=== PATIENT | male | born 2000 | race Caucasian/White ===

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

== ENCOUNTER 2019-09-16 12:41 | Emergency (ER) | payer MEDICAID, OTHER ==
[~2019-09-16] VITALS: Ht 172.7 cm; Wt 68.0 kg
[2019-09-16 15:06] VITALS: BP 138/90
== END 2019-09-16 14:53 | disposition home or self-care (01) ==
LOC: ER 12:41
DX: E10.9 Type 1 diabetes mellitus without complications (principal); Z76.0 Encounter for issue of repeat prescription

== ENCOUNTER 2020-01-02 03:47 | Emergency (ER) | payer OTHER, MEDICAID ==
[~2020-01-02] VITALS: Ht 172.7 cm; Wt 68.0 kg
[2020-01-02] MEDS ORDERED: LORazepam 0.5 MG TAB PO ONE (04:30)
[2020-01-02 04:43] VITALS: BP 137/82
[2020-01-02 05:49] LABS: Urine Bacteria FEW /hpf (None Seen); Urine Blood Negative /uL (Negative); Urine Specific Gravity 1.037 (1.001-1.035); Urine WBC <1 /hpf (0 - 3)
[2020-01-02 06:05] LABS: Alcohol, Urine < 3.0 mg/dL (0-10); Amphetamine Screen, Urine POSITIVE (NEGATIVE); Barbiturate Scree,Urine NEGATIVE (NEGATIVE); Benzodiazephine Screen, Urine NEGATIVE (NEGATIVE); Cannabinoid Screen, Urine NEGATIVE (NEGATIVE); Cocaine Screen, Urine NEGATIVE (NEGATIVE); Opiate Scree,Urine NEGATIVE (NEGATIVE); Phencyclidine Screen, Urine NEGATIVE (NEGATIVE)
== END 2020-01-02 09:34 | disposition left against medical advice (07) ==
LOC: ER 03:49
DX: R00.2 Palpitations (principal); R42 Dizziness and giddiness; Z53.21 Procedure and treatment not carried out due to patient leaving prior to being seen by health care provider
CPT/HCPCS: 80307; 81001; 82962; 93005

== ENCOUNTER 2020-07-05 14:01 | Emergency (ER) | payer OTHER, MEDICAID ==
[~2020-07-05] VITALS: Ht 172.7 cm; Wt 63.5 kg
[2020-07-05] MEDS ORDERED: SODIUM CHLORIDE 0.9% 1,000 ML IVB ONE (14:30)
[2020-07-05 15:20] LABS: Basophils # (auto) 0.1 10 ^3/uL (0-0.2); Eosinophils # (auto) 0 10 ^3/uL (0-0.8); Eosinophils % (auto) 0.1 % (0.0-7.0)
[2020-07-05 15:22] LABS: Basophils % (auto) 0.6 % (0.0-2.0); Hematocrit 49.8 % (41.0-53.0); Hemoglobin 15.1 g/dL (13.5-17.5); Lymphocytes # (auto) 2.8 10 ^3/uL (0.4-5.4); Mean Corpuscular Hemoglobin 29.1 pg (28.0-32.0); Mean Corpuscular Hgb Conc. 30.4 g/dL (32.0-36.0); Mean Corpuscular Volume 95.7 fL (80.0-100.0); Monocytes # (auto) 1.9 10 ^3/uL (0-1.3); Monocytes % (auto) 9.1 % (0.0-12.0); Neutrophils # (auto) 16.5 10 ^3/uL (1.6-8.6); Neutrophils % (auto) 77.2 % (37.0-80.0); Nucleated Red Blood Cells % 0.1 %; Platelet Count (auto) 488 10^3/uL (140-450); Red Blood Cells 5.21 10^6/uL (4.5-5.90); Red Cell Distribution Width 14.2 % (11.8-14.3); White Blood Cell 21.3 10^3/uL (4.4-10.8)
[2020-07-05] MEDS ORDERED: ONDANSETRON HCL 4 MG/2 ML VIAL IV ONE (15:30)
[2020-07-05] MEDS ORDERED: ONDANSETRON HCL 4 MG/2 ML VIAL ONE (15:36)
[2020-07-05 15:58] LABS: Potassium 4.6 mmol/L (3.5-5.1)
[2020-07-05 16:07] LABS: Urine Bacteria NONE SEEN /hpf (None Seen); Urine Blood Negative /uL (Negative); Urine WBC 1 /hpf (0 - 3)
[2020-07-05 16:13] LABS: Albumin 3.8 g/dL (3.4-5.0); BUN/Creatinine Ratio 14.3; Bilirubin, Total 0.4 mg/dL (0.2-1.0); Calcium 9.1 mg/dL (8.5-10.1); Magnesium 2.9 mg/dL (1.6-2.6)
[2020-07-05 16:18] LABS: Alcohol, Urine < 3.0 mg/dL (0-10); Amphetamine Screen, Urine NEGATIVE (NEGATIVE); Barbiturate Scree,Urine NEGATIVE (NEGATIVE); Benzodiazephine Screen, Urine NEGATIVE (NEGATIVE); Cannabinoid Screen, Urine NEGATIVE (NEGATIVE); Cocaine Screen, Urine NEGATIVE (NEGATIVE); Opiate Scree,Urine POSITIVE (NEGATIVE); Phencyclidine Screen, Urine NEGATIVE (NEGATIVE)
[2020-07-05] MEDS ORDERED: ACTIVATED CHARCOAL 50 GM/240 ML SOL PO ONE (16:45)
[2020-07-05] MEDS ORDERED: SODIUM BICARBONATE 8.4 % INJ 50ML VIAL IV ONE ×2 (16:45)
[2020-07-05] MEDS ORDERED: NALOXONE HCL 1MG/ML 2ML SYRINGE IV ONE (16:45)
[2020-07-05] MEDS ORDERED: InsuLIN R (HUMAN) 100 UNITS in SODIUM CHL 0.9% 99 ML IV SCH (16:45)
[2020-07-05] MEDS ORDERED: SODIUM CHLORIDE 0.9% 1,000 ML IV SCH ×3 (16:45→22:45)
[2020-07-05] MEDS ORDERED: DEXTROSE (50%) 50ML SYRG IV PRN (16:45)
[2020-07-05] MEDS ORDERED: ALUM & MAG HYDROX-SIMETH LIQ(MAALOX) 30 ML PO PRN (17:30)
[2020-07-05] MEDS ORDERED: NITROGLYCERIN 0.4 MG SL TAB SL PRN ×2 (17:30)
[2020-07-05] MEDS ORDERED: ACETAMINOPHEN 325 MG TAB PO PRN (17:30)
[2020-07-05] MEDS ORDERED: LORazepam 0.5 MG TAB PO PRN (17:30)
[2020-07-05] MEDS ORDERED: HYDROcodone-ACET 5/325MG TAB PO PRN (17:30)
[2020-07-05] MEDS ORDERED: LACTATED RINGER'S 2,000 ML IV ONE (17:30)
[2020-07-05] MEDS ORDERED: VANCOMYCIN PER PHARMACY 0 MG IV SCH (17:30)
[2020-07-05] MEDS ORDERED: ONDANSETRON HCL 4 MG/2 ML VIAL IV PRN (17:30)
[2020-07-05] MEDS ORDERED: DOCUSATE SOD 100 MG CAP PO PRN (17:30)
[2020-07-05] MEDS ORDERED: MORPHINE SULF INJ 2 MG/ML SYRINGE 1ML IV PRN ×3 (17:30)
[2020-07-05] MEDS ORDERED: MEROPENEM 1GM IVPB 100 ML IV ONE (17:45)
[2020-07-05] MEDS ORDERED: HALOPERIDOL LACTATE 5 MG/ML INJ VIAL IM ONE (18:00)
[2020-07-05] MEDS ORDERED: LORazepam 2MG/ML-1ML VIAL IV PRN (18:00)
[2020-07-05] MEDS ORDERED: LORazepam 2MG/ML-1ML VIAL IM ONE (18:00)
[2020-07-05] MEDS ORDERED: VANCOMYCIN 1GM/250ML 250 ML IV SCH (18:00)
[2020-07-05] MEDS: D5W/ SOD CHL 0.9%/KCL 20MEQ 1,000 ML IV SCH (18:00)
[2020-07-05] MEDS ORDERED: HALOPERIDOL LACTATE 5 MG/ML INJ VIAL IM PRN (18:00)
[2020-07-05] MEDS: ACCU-CHEK COMFORT CURVE STRIP VI SCH ×4 (18:05→22:57)
[2020-07-05] MEDS ORDERED: LORazepam 2MG/ML-1ML VIAL ONE (18:09)
[2020-07-05] MEDS ORDERED: HALOPERIDOL LACTATE 5 MG/ML INJ VIAL ONE (18:09)
[2020-07-05] MEDS: D5W/SOD CHLO 0.9% 1,000 ML IV SCH (18:55)
[2020-07-05 22:12] LABS: Anion Gap 19 (5-15); Blood Urea Nitrogen 14 mg/dL (7-18); Calcium 8.2 mg/dL (8.5-10.1); Carbon Dioxide 13 mmol/L (21-32); Chloride 108 mmol/L (98-107); Glucose 349 mg/dL (74-106); Potassium 3.6 mmol/L (3.5-5.1); Sodium 140 mmol/L (136-145)
[2020-07-05 22:14] LABS: Lactic Acid w/Reflex 6.6 mmol/L (0.4-2.0)
[2020-07-05 22:16] LABS: BUN/Creatinine Ratio 11.7; GFR African American 100 mL/min; GFR Non-African American 83 mL/min
[2020-07-06] MEDS: FAMOTIDINE (10MG/ML) 2ML VL IV SCH ×2 (00:12→09:55)
[2020-07-06] MEDS: VANCOMYCIN 1GM/250ML 250 ML IV SCH ×2 (00:18→09:47)
[2020-07-06] MEDS: ACCU-CHEK COMFORT CURVE STRIP VI SCH ×7 (00:21→09:47)
[2020-07-06] MEDS: D5W/SOD CHLO 0.9% 1,000 ML IV SCH (01:12)
[2020-07-06] MEDS: D5W/ SOD CHL 0.9%/KCL 20MEQ 1,000 ML IV SCH (04:00)
[2020-07-06] MEDS ORDERED: MEROPENEM 1GM IVPB 100 ML IV SCH (05:00)
[2020-07-06 06:26] LABS: Lactic Acid w/Reflex 6.6 mmol/L (0.4-2.0)
[2020-07-06 06:27] LABS: Eosinophils # (auto) 0 10 ^3/uL (0-0.8); Hemoglobin 13.7 g/dL (13.5-17.5); Lymphocytes # (auto) 2.1 10 ^3/uL (0.4-5.4)
[2020-07-06 06:29] LABS: Basophils # (auto) 0.2 10 ^3/uL (0-0.2); Basophils % (auto) 0.9 % (0.0-2.0); Hematocrit 40.8 % (41.0-53.0); Lymphocytes % (auto) 9.4 % (10.0-50.0); Mean Corpuscular Hemoglobin 29.4 pg (28.0-32.0); Mean Corpuscular Hgb Conc. 33.5 g/dL (32.0-36.0); Mean Corpuscular Volume 87.6 fL (80.0-100.0); Monocytes # (auto) 1.7 10 ^3/uL (0-1.3); Monocytes % (auto) 7.4 % (0.0-12.0); Neutrophils # (auto) 18.7 10 ^3/uL (1.6-8.6); Neutrophils % (auto) 82.3 % (37.0-80.0); Platelet Count (auto) 482 10^3/uL (140-450); Red Blood Cells 4.66 10^6/uL (4.5-5.90); Red Cell Distribution Width 12.7 % (11.8-14.3); White Blood Cell 22.7 10^3/uL (4.4-10.8)
[2020-07-06 06:48] LABS: BUN/Creatinine Ratio 9.8; Calcium 8.5 mg/dL (8.5-10.1)
[2020-07-06] MEDS ORDERED: SODIUM CHLORIDE 0.9% 1,000 ML IV SCH (07:00)
[2020-07-06] MEDS ORDERED: SODIUM CHLORIDE 0.9% 3,000 ML IV ONE (07:00)
[2020-07-06] MEDS ORDERED: D5W/ SOD CHL 0.9%/KCL 20MEQ 1,000 ML IV SCH (07:30)
[2020-07-06 08:42] VITALS: BP 157/100
[2020-07-06] MEDS ORDERED: ENOXAPARIN SOD 40 MG/0.4 ML SYRINGE SC SCH (10:00)
[2020-07-06 10:24] LABS: Calcium 7.8 mg/dL (8.5-10.1); Potassium 3.4 mmol/L (3.5-5.1)
== END 2020-07-06 10:16 | disposition left against medical advice (07) ==
LOC: ER 14:01 → UNDOADMIN 17:37 → TELE 17:37
DX: A41.9 Sepsis, unspecified organism (principal); E10.10 Type 1 diabetes mellitus with ketoacidosis without coma; F41.8 Other specified anxiety disorders; F17.210 Nicotine dependence, cigarettes, uncomplicated; F12.10 Cannabis abuse, uncomplicated; F14.10 Cocaine abuse, uncomplicated; G92 Toxic encephalopathy; G93.41 Metabolic encephalopathy; D72.829 Elevated white blood cell count, unspecified; F31.9 Bipolar disorder, unspecified; R07.9 Chest pain, unspecified
CPT/HCPCS: 36415; 36600; 71045; 80048; 80053; 80307; 81001; 82553; 82805; 82962; 83036; 83605; 83690; 83735; 84484; 85025; 85379; 87040; 87086; 87426; 96361; 96365; 96366; 96368; 96372; 96375; 99291; J1630; J1650; J1815; J2060; J2185; J2310; J2405; J3370; J3490; J7030; 96374; G0378

== ENCOUNTER 2020-11-14 19:10 | Inpatient (IN) | payer OTHER, MEDICAID ==
[~2020-11-14] VITALS: Ht 172.7 cm; Wt 56.0 kg
[2020-11-14] MEDS ORDERED: SODIUM CHLORIDE 0.9% 1,000 ML IV ONE (19:30)
[2020-11-14 20:06] LABS: Hemoglobin 11.8 g/dL (13.5-17.5)
[2020-11-14 20:08] LABS: Hematocrit 43.6 % (41.0-53.0); Mean Corpuscular Hemoglobin 29.4 pg (28.0-32.0); Red Cell Distribution Width 14.9 % (11.8-14.3)
[2020-11-14] MEDS ORDERED: InsuLIN REG 1unit/0.01ml Soln (100units/ml) IV ONE ×2 (20:15→23:30)
[2020-11-14] MEDS ORDERED: SODIUM BICARB 50ML SYR 50 ML in SODIUM CHLORIDE 0.9% 1,000 ML IV ONE (20:15)
[2020-11-14 20:23] LABS: INR 1.08 (0.9-1.15)
[2020-11-14 20:25] LABS: White Blood Cell 42.5 10^3/uL (4.4-10.8)
[2020-11-14 20:26] LABS: Lactic Acid w/Reflex 5.9 mmol/L (0.4-2.0)
[2020-11-14 20:31] LABS: Albumin 3.6 g/dL (3.4-5.0); BUN/Creatinine Ratio 19.4; Bilirubin, Total 0.6 mg/dL (0.2-1.0); Calcium 8.1 mg/dL (8.5-10.1); Total Protein 7.2 g/dL (6.4-8.2)
[2020-11-14 20:37] LABS: Basophils % (manual) 0 (0.0-2.0); Blast Cells 0; Eosinophils % (manual) 0 (0-7); Promyelocytes % 0; Reactive Lymphocytes 0
[2020-11-14 20:52] LABS: Potassium 5.8 mmol/L (3.5-5.1)
[2020-11-14] MEDS: D5W/SOD CHL 0.45%/KCL 20MEQ 1,000 ML IV SCH (21:00)
[2020-11-14] MEDS ORDERED: INSULIN LANTUS (GLARGINE) 1 /0.01ml (100units/ml) SC ONE (21:00)
[2020-11-14] MEDS: ACCU-CHEK COMFORT CURVE STRIP VI SCH ×2 (21:00→22:40)
[2020-11-14] MEDS ORDERED: InsuLIN R (HUMAN) 100 UNITS in SODIUM CHL 0.9% 99 ML IV SCH (21:00)
[2020-11-14] MEDS: SODIUM CHLORIDE 0.9% 1,000 ML IV SCH ×2 (21:00→23:00)
[2020-11-14] MEDS ORDERED: DEXTROSE (50%) 50ML SYRG IV PRN (21:00)
[2020-11-14 21:10] LABS: Band Neutrophils % (manual) 8; Lymphocytes % (manual) 11 (10.0-50.0); Metamyelocytes % 1; Monocytes % (manual) 9 (0-12); Myelocytes % 1
[2020-11-14] MEDS ORDERED: SODIUM BICARBONATE 8.4 % INJ 50ML VIAL IV ONE ×2 (21:30→21:31)
[2020-11-14] MEDS ORDERED: InsuLIN REG 1unit/0.01ml Soln (100units/ml) ONE (21:37)
[2020-11-14] MEDS ORDERED: cefTRIAXone 1GM/50ML D5W 50 ML IV ONE (22:00)
[2020-11-14] MEDS ORDERED: NITROGLYCERIN 0.4 MG SL TAB SL PRN (22:45)
[2020-11-14] MEDS ORDERED: VANCOMYCIN PER PHARMACY 0 MG IV SCH (22:45)
[2020-11-14] MEDS ORDERED: ACETAMINOPHEN 325 MG TAB PO PRN (22:45)
[2020-11-14] MEDS ORDERED: MORPHINE SULFATE INJECTION 2 MG/ML SYRG IV PRN (22:45)
[2020-11-14] MEDS ORDERED: HYDROcodone-ACET 5/325MG TAB PO PRN (22:45)
[2020-11-14] MEDS ORDERED: hydrALAZINE HCL 20 MG/ML VL IV PRN (22:45)
[2020-11-14] MEDS ORDERED: ONDANSETRON HCL 4 MG/2 ML VIAL IV PRN (22:45)
[2020-11-14] MEDS ORDERED: VANCOMYCIN 1GM/250ML 250 ML IV ONE (23:00)
[2020-11-14 23:03] LABS: Calcium 7.3 mg/dL (8.5-10.1)
[2020-11-14 23:12] LABS: BUN/Creatinine Ratio 23.7
[2020-11-14] MEDS ORDERED: LORazepam 2MG/ML-1ML VIAL IV ONE (23:45)
[2020-11-15] MEDS: ACCU-CHEK COMFORT CURVE STRIP VI SCH ×17 (00:20→20:41)
[2020-11-15] MEDS ORDERED: SODIUM CHLORIDE 0.9% 1,000 ML IV SCH (01:00)
[2020-11-15 01:28] LABS: Lactic Acid w/Reflex 4.9 mmol/L (0.4-2.0)
[2020-11-15] MEDS ORDERED: LORazepam 2MG/ML-1ML VIAL IV PRN (01:30)
[2020-11-15] MEDS: D5W/SOD CHL 0.45%/KCL 20MEQ 1,000 ML IV SCH ×3 (02:43→14:09)
[2020-11-15] MEDS: SODIUM CHLORIDE 0.9% 1,000 ML IV SCH ×3 (03:00→14:55)
[2020-11-15 05:26] LABS: Hematocrit 33.2 % (41.0-53.0); Mean Corpuscular Hemoglobin 29.2 pg (28.0-32.0); Mean Corpuscular Hgb Conc. 33.6 g/dL (32.0-36.0); Red Cell Distribution Width 13.3 % (11.8-14.3)
[2020-11-15 05:28] LABS: Hemoglobin 11.2 g/dL (13.5-17.5); Mean Corpuscular Volume 86.8 fL (80.0-100.0); Red Blood Cells 3.83 10^6/uL (4.5-5.90); White Blood Cell 26.1 10^3/uL (4.4-10.8)
[2020-11-15 05:36] LABS: Basophils % (manual) 0 (0.0-2.0); Blast Cells 0; Eosinophils % (manual) 0 (0-7); Metamyelocytes % 0; Myelocytes % 0; Promyelocytes % 0; Reactive Lymphocytes 0
[2020-11-15 05:42] LABS: Albumin 3.1 g/dL (3.4-5.0); Calcium 8.3 mg/dL (8.5-10.1); Magnesium 2.1 mg/dL (1.6-2.6); Phosphorus 2.2 mg/dL (2.5-4.90)
[2020-11-15 05:46] LABS: BUN/Creatinine Ratio 26.5; Bilirubin, Total 0.4 mg/dL (0.2-1.0); Total Protein 6.2 g/dL (6.4-8.2)
[2020-11-15 05:51] LABS: Urine Bacteria NONE SEEN /hpf (None Seen); Urine Blood Negative /uL (Negative); Urine Specific Gravity 1.023 (1.001-1.035); Urine WBC 51 /hpf (0 - 3); Urine WBC Clumps PRESENT /hpf (None Seen)
[2020-11-15 06:52] LABS: Band Neutrophils % (manual) 27; Lymphocytes % (manual) 5 (10.0-50.0); Monocytes % (manual) 11 (0-12)
[2020-11-15] MEDS: cefTRIAXone 1GM/50ML D5W 50 ML IV SCH (09:00)
[2020-11-15 09:59] LABS: BUN/Creatinine Ratio 23.2; Calcium 7.7 mg/dL (8.5-10.1); Potassium 3.7 mmol/L (3.5-5.1)
[2020-11-15] MEDS: MULTIPLE VITAMIN TAB PO SCH (10:00)
[2020-11-15] MEDS: FAMOTIDINE (10MG/ML) 2ML VL IV SCH ×2 (10:00→21:30)
[2020-11-15] MEDS: HEPARIN SODIUM (PORCINE) 5000 UNITS/ML 1ML VIAL SC SCH ×2 (10:00→21:31)
[2020-11-15] MEDS: ZINC SULFATE 220mg CAP or TAB PO SCH (10:00)
[2020-11-15] MEDS: ASCORBIC ACID 500 MG TAB PO SCH ×2 (10:00→21:30)
[2020-11-15] MEDS: VANCOMYCIN 1GM/250ML 250 ML IV SCH ×2 (10:00→20:00)
[2020-11-15] MEDS ORDERED: DEXTROSE (50%) 50ML SYRG IV PRN (15:00)
[2020-11-15] MEDS: InsuLIN REG 1unit/0.01ml Soln (100units/ml) SC SCH ×2 (16:00→20:00)
[2020-11-15 21:44] LABS: Alcohol, Urine < 3.0 mg/dL (0-10); Amphetamine Screen, Urine POSITIVE (NEGATIVE); Barbiturate Scree,Urine NEGATIVE (NEGATIVE); Benzodiazephine Screen, Urine NEGATIVE (NEGATIVE); Cannabinoid Screen, Urine NEGATIVE (NEGATIVE); Cocaine Screen, Urine NEGATIVE (NEGATIVE); Opiate Scree,Urine NEGATIVE (NEGATIVE); Phencyclidine Screen, Urine NEGATIVE (NEGATIVE)
[2020-11-15] MEDS ORDERED: INSULIN LANTUS (GLARGINE) 1 /0.01ml (100units/ml) SC SCH (22:00)
[2020-11-15 22:37] LABS: Albumin 2.5 g/dL (3.4-5.0); BUN/Creatinine Ratio 26.4; Calcium 7.9 mg/dL (8.5-10.1); Potassium 3.6 mmol/L (3.5-5.1)
[2020-11-15 22:39] LABS: Bilirubin, Total 0.4 mg/dL (0.2-1.0); Total Protein 5.5 g/dL (6.4-8.2)
[2020-11-16] VITALS: BP 131/63
[2020-11-16] MEDS: InsuLIN REG 1unit/0.01ml Soln (100units/ml) SC SCH ×3 (00:12→08:00)
[2020-11-16] MEDS: ACCU-CHEK COMFORT CURVE STRIP VI SCH ×3 (00:13→08:00)
[2020-11-16 05:00] VITALS: BP 129/84
[2020-11-16] MEDS: SODIUM CHLORIDE 0.9% 1,000 ML IV SCH (05:09)
[2020-11-16] MEDS: VANCOMYCIN 1GM/250ML 250 ML IV SCH (06:00)
[2020-11-16 09:00] VITALS: BP 124/83
[2020-11-16] MEDS: cefTRIAXone 1GM/50ML D5W 50 ML IV SCH (09:00)
[2020-11-16] MEDS: ASCORBIC ACID 500 MG TAB PO SCH (09:54)
[2020-11-16] MEDS: ZINC SULFATE 220mg CAP or TAB PO SCH (09:54)
[2020-11-16] MEDS: MULTIPLE VITAMIN TAB PO SCH (09:54)
[2020-11-16] MEDS: FAMOTIDINE (10MG/ML) 2ML VL IV SCH (09:54)
[2020-11-16] MEDS: HEPARIN SODIUM (PORCINE) 5000 UNITS/ML 1ML VIAL SC SCH (09:55)
== END 2020-11-16 12:10 | disposition left against medical advice (07) | DRG 871 ==
LOC: EDUNIT# 19:10 → EDBD 19:10 → ER 19:10 → TELE 22:42 → TELE-CENTR 11-15 22:53
PROVIDERS: ADMIT Nurse Practitioner Family; ATTEND Internal Medicine
DX: A41.9 Sepsis, unspecified organism (principal); G92 Toxic encephalopathy; N17.0 Acute kidney failure with tubular necrosis; E10.10 Type 1 diabetes mellitus with ketoacidosis without coma; E87.1 Hypo-osmolality and hyponatremia; R65.20 Severe sepsis without septic shock; E87.8 Other disorders of electrolyte and fluid balance, not elsewhere classified; F11.10 Opioid abuse, uncomplicated; D47.3 Essential (hemorrhagic) thrombocythemia; D63.1 Anemia in chronic kidney disease; E10.22 Type 1 diabetes mellitus with diabetic chronic kidney disease; E83.39 Other disorders of phosphorus metabolism; E86.0 Dehydration; Z53.29 Procedure and treatment not carried out because of patient's decision for other reasons; E87.5 Hyperkalemia; F12.10 Cannabis abuse, uncomplicated; N18.9 Chronic kidney disease, unspecified; F17.210 Nicotine dependence, cigarettes, uncomplicated; F41.9 Anxiety disorder, unspecified; Z20.822 Contact with and (suspected) exposure to COVID-19; F32.9 Major depressive disorder, single episode, unspecified; Z79.4 Long term (current) use of insulin; Z80.3 Family history of malignant neoplasm of breast; Z82.49 Family history of ischemic heart disease and other diseases of the circulatory system; Z83.3 Family history of diabetes mellitus; Z91.14 Patient's other noncompliance with medication regimen
CPT/HCPCS: 36415; 36600; 71045; 80048; 80053; 80307; 81001; 82010; 82805; 82962; 83036; 83605; 83735; 83930; 84100; 85007; 85027; 85610; 87040; 87081; 87086; 87426; 96361; 96365; 96366; 96367; 96372; 96375; 96376; 99291; G0378; J0696; J1815; J2405; J3490

== ENCOUNTER 2020-11-24 03:12 | Inpatient (IN) | payer OTHER, MEDICAID ==
[~2020-11-24] VITALS: Ht 170.2 cm; Wt 49.9 kg
[2020-11-24] MEDS ORDERED: SODIUM CHLORIDE 0.9% 2,000 ML IV ONE (04:00)
[2020-11-24] MEDS ORDERED: InsuLIN REG 1unit/0.01ml Soln (100units/ml) IV ONE ×3 (04:00→07:30)
[2020-11-24] MEDS ORDERED: INSULIN LANTUS (GLARGINE) 1 /0.01ml (100units/ml) SC ONE (04:15)
[2020-11-24] MEDS ORDERED: SODIUM BICARBONATE 50ML VIAL 150 ML in D5W 5% 1,000 ML IV ONE (04:15)
[2020-11-24] MEDS ORDERED: DEXTROSE (50%) 50ML SYRG IV PRN ×2 (04:15→22:30)
[2020-11-24 04:31] LABS: Urine Bacteria NONE SEEN /hpf (None Seen); Urine Blood Negative /uL (Negative); Urine Specific Gravity 1.022 (1.001-1.035); Urine WBC 1 /hpf (0 - 3)
[2020-11-24 04:38] LABS: Amphetamine Screen, Urine NEGATIVE (NEGATIVE); Barbiturate Scree,Urine NEGATIVE (NEGATIVE); Benzodiazephine Screen, Urine NEGATIVE (NEGATIVE); Cannabinoid Screen, Urine NEGATIVE (NEGATIVE); Cocaine Screen, Urine NEGATIVE (NEGATIVE); Opiate Scree,Urine NEGATIVE (NEGATIVE); Phencyclidine Screen, Urine NEGATIVE (NEGATIVE)
[2020-11-24 04:54] LABS: Hematocrit 43.2 % (41.0-53.0); Hemoglobin 11.5 g/dL (13.5-17.5); Mean Corpuscular Hemoglobin 29.4 pg (28.0-32.0); Mean Corpuscular Hgb Conc. 26.6 g/dL (32.0-36.0); Mean Corpuscular Volume 110.6 fL (80.0-100.0); Red Cell Distribution Width 15.3 % (11.8-14.3)
[2020-11-24 04:59] LABS: White Blood Cell 48.4 10^3/uL (4.4-10.8)
[2020-11-24] MEDS ORDERED: InsuLIN REG 1unit/0.01ml Soln (100units/ml) ONE (04:59)
[2020-11-24 05:00] LABS: Basophils % (manual) 0 (0.0-2.0); Blast Cells 0; Eosinophils % (manual) 0 (0-7); Myelocytes % 0; Promyelocytes % 0; Reactive Lymphocytes 0
[2020-11-24 05:03] LABS: Albumin 3.1 g/dL (3.4-5.0); Calcium 8.4 mg/dL (8.5-10.1); Magnesium 3.2 mg/dL (1.6-2.6); Potassium 5.3 mmol/L (3.5-5.1)
[2020-11-24 05:06] LABS: Bilirubin, Total 0.4 mg/dL (0.2-1.0); Lactic Acid w/Reflex 6.1 mmol/L (0.4-2.0); Total Protein 6.3 g/dL (6.4-8.2)
[2020-11-24] MEDS: InsuLIN R (HUMAN) 100 UNITS in SODIUM CHL 0.9% 99 ML IV SCH ×6 (05:15→18:47)
[2020-11-24] MEDS: ACCU-CHEK COMFORT CURVE STRIP VI SCH ×12 (05:16→21:10)
[2020-11-24] MEDS ORDERED: SODIUM BICARBONATE 8.4 % INJ 50ML VIAL IV ONE ×2 (05:24→06:00)
[2020-11-24 05:26] LABS: BUN/Creatinine Ratio 19.9
[2020-11-24] MEDS ORDERED: cefTRIAXone 1GM/50ML D5W 50 ML IV ONE ×2 (05:30→09:00)
[2020-11-24] MEDS ORDERED: SODIUM CHLORIDE 0.9% 1,000 ML IV ONE (06:00)
[2020-11-24 06:16] LABS: Band Neutrophils % (manual) 13; Lymphocytes % (manual) 15 (10.0-50.0); Metamyelocytes % 1; Monocytes % (manual) 7 (0-12)
[2020-11-24] MEDS ORDERED: NITROGLYCERIN 0.4 MG SL TAB SL PRN (08:45)
[2020-11-24] MEDS ORDERED: MORPHINE SULFATE INJECTION 2 MG/ML SYRG IV PRN (08:45)
[2020-11-24] MEDS ORDERED: InsuLIN R (HUMAN) 100 UNITS in SODIUM CHL 0.9% 99 ML IV SCH ×2 (08:45→10:45)
[2020-11-24] MEDS ORDERED: cefTRIAXone 1GM/50ML D5W 50 ML IV SCH (09:00)
[2020-11-24] MEDS ORDERED: CLINDAMYCIN 600MG IV 50 ML IV ONE (09:00)
[2020-11-24] MEDS: SODIUM CHLORIDE 0.9% 1,000 ML IV SCH ×2 (10:14→10:45)
[2020-11-24] MEDS ORDERED: SODIUM CHLORIDE 0.9% 1,000 ML IV SCH ×2 (12:45→14:45)
[2020-11-24 14:06] LABS: Calcium 9.2 mg/dL (8.5-10.1)
[2020-11-24 14:14] LABS: BUN/Creatinine Ratio 21.6
[2020-11-24 14:20] LABS: Potassium 2.7 mmol/L (3.5-5.1)
[2020-11-24] MEDS ORDERED: POTASSIUM CHL 20MEQ/100ML 100 ML IV ONE (14:30)
[2020-11-24] MEDS: SOD CHL 0.9%/ KCL 40MEQ 1,000 ML IV SCH ×2 (14:30→22:51)
[2020-11-24] MEDS ORDERED: POTASSIUM CHL 20MEQ/100ML 100 ML IV SCH (14:30)
[2020-11-24] MEDS: POTASSIUM CHL 20MEQ/100ML 100 ML IV SCH ×4 (15:13→22:03)
[2020-11-24 16:06] LABS: BUN/Creatinine Ratio 19.6; Calcium 9.1 mg/dL (8.5-10.1)
[2020-11-24] MEDS: CLINDAMYCIN 600MG IV 50 ML IV SCH (17:00)
[2020-11-24 17:18] LABS: Potassium 2.5 mmol/L (3.5-5.1)
[2020-11-24 21:16] LABS: BUN/Creatinine Ratio 23.7; Calcium 8.1 mg/dL (8.5-10.1); Potassium 4.2 mmol/L (3.5-5.1)
[2020-11-25] MEDS ORDERED: ONDANSETRON HCL 4 MG/2 ML VIAL IV ONE
[2020-11-25] MEDS: ACCU-CHEK COMFORT CURVE STRIP VI SCH ×2 (00:07→04:00)
[2020-11-25] MEDS: POTASSIUM CHL 20MEQ/100ML 100 ML IV SCH (00:26)
[2020-11-25] MEDS: CLINDAMYCIN 600MG IV 50 ML IV SCH (01:06)
[2020-11-25 03:07] LABS: Calcium 7.9 mg/dL (8.5-10.1); Potassium 4.2 mmol/L (3.5-5.1)
[2020-11-25 03:22] LABS: BUN/Creatinine Ratio 26.4
[2020-11-25] MEDS: InsuLIN REG 1unit/0.01ml Soln (100units/ml) SC SCH ×2 (04:01)
[2020-11-25 06:09] VITALS: BP 130/88
[2020-11-25] MEDS ORDERED: INSULIN LANTUS (GLARGINE) 1 /0.01ml (100units/ml) SC SCH ×2 (10:00)
== END 2020-11-25 08:10 | disposition left against medical advice (07) | DRG 637 ==
LOC: ER 03:12 → OVERFLOW 08:32
PROVIDERS: ADMIT Internal Medicine; ATTEND Internal Medicine
PROC: 02HV33Z Insertion of Infusion Device into Superior Vena Cava, Percutaneous Approach (ICD-10-PCS; principal; 2020-11-24)
PROC: B548ZZA Ultrasonography of Superior Vena Cava, Guidance (ICD-10-PCS; 2020-11-24)
DX: E10.10 Type 1 diabetes mellitus with ketoacidosis without coma (principal); G93.41 Metabolic encephalopathy; Z20.822 Contact with and (suspected) exposure to COVID-19; E87.5 Hyperkalemia; F17.210 Nicotine dependence, cigarettes, uncomplicated; Z53.29 Procedure and treatment not carried out because of patient's decision for other reasons; F41.9 Anxiety disorder, unspecified; F32.9 Major depressive disorder, single episode, unspecified; F19.10 Other psychoactive substance abuse, uncomplicated; Z59.0 Homelessness; Z79.4 Long term (current) use of insulin; Z80.3 Family history of malignant neoplasm of breast; Z82.49 Family history of ischemic heart disease and other diseases of the circulatory system; Z83.3 Family history of diabetes mellitus; Z91.19 Patient's noncompliance with other medical treatment and regimen
CPT/HCPCS: 36415; 36600; 71045; 80048; 80053; 80307; 80320; 81001; 82010; 82805; 82962; 83605; 83615; 83690; 83735; 84443; 84484; 85007; 85027; 87040; 87077; 87086; 87186; 87426; 93005; 96365; 96367; 96372; 99291; G0378; J0696; J1815; J2405; J3480; J3490

== ENCOUNTER 2021-01-15 18:09 | Inpatient (IN) | payer MEDICAID, OTHER ==
[~2021-01-15] VITALS: Ht 175.3 cm; Wt 50.3 kg
[2021-01-15] MEDS ORDERED: LORazepam 2MG/ML-1ML VIAL ONE (18:40)
[2021-01-15] MEDS ORDERED: LORazepam 2MG/ML-1ML VIAL IV ONE (18:45)
[2021-01-15 19:13] LABS: Urine Bacteria FEW /hpf (None Seen); Urine Blood Negative /uL (Negative); Urine Specific Gravity 1.019 (1.001-1.035); Urine WBC 1 /hpf (0 - 3)
[2021-01-15 19:21] LABS: Alcohol, Urine < 3.0 mg/dL (0-10); Barbiturate Scree,Urine NEGATIVE (NEGATIVE); Benzodiazephine Screen, Urine NEGATIVE (NEGATIVE); Cannabinoid Screen, Urine NEGATIVE (NEGATIVE); Cocaine Screen, Urine NEGATIVE (NEGATIVE); Opiate Scree,Urine NEGATIVE (NEGATIVE); Phencyclidine Screen, Urine NEGATIVE (NEGATIVE)
[2021-01-15 19:30] LABS: Amphetamine Screen, Urine POSITIVE (NEGATIVE)
[2021-01-15] MEDS ORDERED: INSULIN LANTUS (GLARGINE) 1 /0.01ml (100units/ml) SC ONE (19:30)
[2021-01-15] MEDS ORDERED: InsuLIN R (HUMAN) 100 UNITS in SODIUM CHL 0.9% 99 ML IV SCH (19:30)
[2021-01-15] MEDS: ACCU-CHEK COMFORT CURVE STRIP VI SCH ×3 (19:49→22:30)
[2021-01-15] MEDS: SODIUM CHLORIDE 0.9% 1,000 ML IV SCH ×2 (19:49→21:30)
[2021-01-15] MEDS ORDERED: SODIUM BICARBONATE 50ML VIAL 150 ML in D5W 5% 1,000 ML IV ONE (20:45)
[2021-01-15 20:51] LABS: Magnesium 3.2 mg/dL (1.6-2.6); Mean Corpuscular Hemoglobin 28.7 pg (28.0-32.0); Mean Corpuscular Hgb Conc. 25.7 g/dL (32.0-36.0); Mean Corpuscular Volume 111.7 fL (80.0-100.0); Red Blood Cells 3.85 10^6/uL (4.5-5.90); Red Cell Distribution Width 15.2 % (11.8-14.3)
[2021-01-15 21:02] LABS: White Blood Cell 40.1 10^3/uL (4.4-10.8)
[2021-01-15 21:04] LABS: Basophils % (manual) 0 (0.0-2.0); Blast Cells 0; Eosinophils % (manual) 0 (0-7); Metamyelocytes % 0; Myelocytes % 0; Promyelocytes % 0; Reactive Lymphocytes 0
[2021-01-15] MEDS ORDERED: SODIUM CHLORIDE 0.9% 1,000 ML IV ONE (21:15)
[2021-01-15] MEDS ORDERED: SODIUM BICARBONATE 8.4 % INJ 50ML VIAL IV ONE (21:15)
[2021-01-15] MEDS ORDERED: SODIUM BICARBONATE 8.4% INJ 50ML SYRINGE ONE (21:31)
[2021-01-15 21:43] LABS: Phosphorus 13.1 mg/dL (2.5-4.90)
[2021-01-15] MEDS ORDERED: NITROGLYCERIN 0.4 MG SL TAB SL PRN (22:00)
[2021-01-15] MEDS ORDERED: ONDANSETRON HCL 4 MG/2 ML VIAL IV PRN (22:00)
[2021-01-15] MEDS ORDERED: MORPHINE SULFATE INJECTION 2 MG/ML SYRG IV PRN (22:00)
[2021-01-15] MEDS ORDERED: cefTRIAXone 1GM/50ML D5W 50 ML IV ONE (22:00)
[2021-01-15] MEDS ORDERED: ETOMIDATE (2MG/ML) 20ML VIAL IV ONE (22:15)
[2021-01-15] MEDS ORDERED: MIDAZOLAM HCL 2MG/2ML 2ml VIAL (1mg/ml) IV ONE (22:15)
[2021-01-15] MEDS ORDERED: ROCURONIUM 10MG/ML 10ML VIAL IV ONE (22:15)
[2021-01-15] MEDS ORDERED: PROPOFOL 10 MG/ML 20 ML IV ONE (22:15)
[2021-01-15 22:27] LABS: Band Neutrophils % (manual) 16; Lymphocytes % (manual) 8 (10.0-50.0); Monocytes % (manual) 6 (0-12)
[2021-01-15] MEDS ORDERED: PROPOFOL 100 ML IV ONE (22:45)
[2021-01-15 23:00] VITALS: BP 159/94
[2021-01-15] MEDS: PROPOFOL 100 ML IV SCH (23:00)
[2021-01-15] MEDS: MIDAZOLAM DRIP 50 mg/50mL 50 ML IV SCH (23:00)
[2021-01-15 23:07] LABS: Alanine Aminotransferase 263 U/L (16-61); Alkaline Phosphatase 337 U/L (45-117); Anion Gap 37 (5-15); Aspartate Aminotransferase 64 U/L (15-37); BUN/Creatinine Ratio 25.6; Bilirubin, Total 0.4 mg/dL (0.2-1.0); Blood Urea Nitrogen 40 mg/dL (7-18); Calcium 8.7 mg/dL (8.5-10.1); Chloride 95 mmol/L (98-107); GFR African American 73 mL/min; GFR Non-African American 61 mL/min; Sodium 134 mmol/L (136-145)
[2021-01-15 23:08] LABS: Albumin 3.7 g/dL (3.4-5.0); Total Protein 8.1 g/dL (6.4-8.2)
[2021-01-15 23:23] LABS: Blood Alcohol < 3.0 mg/dL (0-5)
[2021-01-15] MEDS ORDERED: SODIUM CHLORIDE 0.9% 1,000 ML IV SCH (23:30)
[2021-01-15 23:36] LABS: Carbon Dioxide 2 mmol/L (21-32); Glucose 1358 mg/dL (74-106)
[2021-01-15 23:50] VITALS: BP 159/94
[2021-01-16] VITALS (35 sets, daily range): BP systolic 100–159; BP diastolic 48–107
[2021-01-16] MEDS ORDERED: FUROSEMIDE 20 MG/2 ML VIAL IV ONE
[2021-01-16] MEDS ORDERED: CALCIUM GLUC 1,000mg/50ml-NS 50 ML IV ONE
[2021-01-16 00:19] LABS: Lactic Acid w/Reflex 8.6 mmol/L (0.4-2.0)
[2021-01-16] MEDS: ACCU-CHEK COMFORT CURVE STRIP VI SCH ×10 (00:20→18:27)
[2021-01-16] MEDS: SODIUM CHLORIDE 0.9% 1,000 ML IV SCH ×2 (00:32→08:10)
[2021-01-16] MEDS ORDERED: SODIUM BICARBONATE 8.4 % INJ 50ML VIAL IV ONE ×2 (02:30)
[2021-01-16 03:17] LABS: Hematocrit 31.2 % (41.0-53.0); Hemoglobin 10.2 g/dL (13.5-17.5)
[2021-01-16 03:19] LABS: Mean Corpuscular Hemoglobin 29.2 pg (28.0-32.0); Mean Corpuscular Hgb Conc. 32.6 g/dL (32.0-36.0); Mean Corpuscular Volume 89.5 fL (80.0-100.0); Red Blood Cells 3.49 10^6/uL (4.5-5.90)
[2021-01-16 03:24] LABS: BUN/Creatinine Ratio 18.8; Calcium 8.6 mg/dL (8.5-10.1); Potassium 3.8 mmol/L (3.5-5.1)
[2021-01-16 03:27] LABS: Bilirubin, Total 0.2 mg/dL (0.2-1.0); Total Protein 6.6 g/dL (6.4-8.2)
[2021-01-16 03:35] LABS: White Blood Cell 30.5 10^3/uL (4.4-10.8)
[2021-01-16 03:36] LABS: Basophils % (manual) 0 (0.0-2.0); Blast Cells 0; Metamyelocytes % 0; Promyelocytes % 0; Reactive Lymphocytes 0
[2021-01-16] MEDS: MIDAZOLAM DRIP 50 mg/50mL 50 ML IV SCH ×3 (06:06→14:00)
[2021-01-16] MEDS: PROPOFOL 100 ML IV SCH (06:07)
[2021-01-16 06:08] LABS: Band Neutrophils % (manual) 18; Eosinophils % (manual) 1 (0-7); Lymphocytes % (manual) 16 (10.0-50.0); Monocytes % (manual) 8 (0-12); Myelocytes % 1
[2021-01-16] MEDS: DEXTROSE (50%) 50ML SYRG IV PRN ×2 (08:11→10:44)
[2021-01-16] MEDS: cefTRIAXone 1GM/50ML D5W 50 ML IV SCH (09:12)
[2021-01-16] MEDS ORDERED: INSULIN LANTUS (GLARGINE) 1 /0.01ml (100units/ml) SC SCH ×2 (10:00→22:00)
[2021-01-16] MEDS ORDERED: DEXTROSE (50%) 50ML SYRG IV PRN (11:15)
[2021-01-16] MEDS ORDERED: D5W/SOD CHL 0.45% 1,000 ML IV SCH (11:15)
[2021-01-16] MEDS ORDERED: INSULIN LANTUS (GLARGINE) 1 /0.01ml (100units/ml) SC ONE (11:15)
[2021-01-16] MEDS ORDERED: FAMOTIDINE (10MG/ML) 2ML VL IV ONE (11:15)
[2021-01-16 11:56] LABS: Hematocrit 28.3 % (41.0-53.0); Hemoglobin 9.5 g/dL (13.5-17.5); Mean Corpuscular Hemoglobin 29.2 pg (28.0-32.0); Mean Corpuscular Hgb Conc. 33.6 g/dL (32.0-36.0); Red Blood Cells 3.25 10^6/uL (4.5-5.90); Red Cell Distribution Width 13.8 % (11.8-14.3); White Blood Cell 17.3 10^3/uL (4.4-10.8)
[2021-01-16 11:58] LABS: Basophils % (manual) 0 (0.0-2.0); Blast Cells 0; Eosinophils % (manual) 0 (0-7); Metamyelocytes % 0; Myelocytes % 0; Promyelocytes % 0; Reactive Lymphocytes 0
[2021-01-16] MEDS: InsuLIN REG 1unit/0.01ml Soln (100units/ml) SC SCH ×2 (12:00→18:29)
[2021-01-16 12:05] LABS: Albumin 2.6 g/dL (3.4-5.0); Calcium 7.6 mg/dL (8.5-10.1); Potassium 3.2 mmol/L (3.5-5.1)
[2021-01-16 12:08] LABS: BUN/Creatinine Ratio 24.6; Bilirubin, Total 0.2 mg/dL (0.2-1.0)
[2021-01-16 12:37] LABS: Band Neutrophils % (manual) 4; Lymphocytes % (manual) 19 (10.0-50.0); Monocytes % (manual) 10 (0-12)
[2021-01-16] MEDS ORDERED: D5W/SOD CHL 0.45%/KCL 20MEQ 1,000 ML IV ONE (12:40)
[2021-01-16] MEDS: D5W/SOD CHL 0.45%/KCL 20MEQ 1,000 ML IV SCH ×2 (12:47→22:45)
[2021-01-16] MEDS: ACETAMINOPHEN 325 MG TAB PO PRN (17:15)
[2021-01-17] MEDS: ACCU-CHEK COMFORT CURVE STRIP VI SCH ×3 (00:29→12:42)
[2021-01-17] MEDS: ACETAMINOPHEN 325 MG TAB PO PRN (04:48)
[2021-01-17 05:30] VITALS: BP 139/88
[2021-01-17] MEDS: InsuLIN REG 1unit/0.01ml Soln (100units/ml) SC SCH ×3 (06:02→12:37)
[2021-01-17] MEDS: D5W/SOD CHL 0.45%/KCL 20MEQ 1,000 ML IV SCH (07:01)
[2021-01-17 08:44] VITALS: BP_SYST 137; BP_SYST 156; BP_DIAS 65; BP_DIAS 96
[2021-01-17] MEDS: cefTRIAXone 1GM/50ML D5W 50 ML IV SCH (09:44)
[2021-01-17] MEDS ORDERED: FAMOTIDINE (10MG/ML) 2ML VL IV SCH (10:00)
[2021-01-17] MEDS ORDERED: MUPIROCIN 2% OINT 15gm or 22gm TOP SCH (10:00)
[2021-01-17 12:48] VITALS: BP 151/102
== END 2021-01-17 15:15 | disposition left against medical advice (07) | DRG 133 ==
LOC: ER 18:11 → TELE 21:54 → ICU WEST 01-16 05:21 → TELE-WESTW 01-16 20:18 → WEST WING 01-16 20:19
PROVIDERS: ADMIT Nurse Practitioner; ATTEND Internal Medicine
PROC: 5A1935Z Respiratory Ventilation, Less than 24 Consecutive Hours (ICD-10-PCS; principal; 2021-01-15)
PROC: 0BH17EZ Insertion of Endotracheal Airway into Trachea, Via Natural or Artificial Opening (ICD-10-PCS; 2021-01-15)
PROC: 06HY33Z Insertion of Infusion Device into Lower Vein, Percutaneous Approach (ICD-10-PCS; 2021-01-15)
DX: J96.00 Acute respiratory failure, unspecified whether with hypoxia or hypercapnia (principal); N17.0 Acute kidney failure with tubular necrosis; G92.8 Other toxic encephalopathy; E11.10 Type 2 diabetes mellitus with ketoacidosis without coma; R65.10 Systemic inflammatory response syndrome (SIRS) of non-infectious origin without acute organ dysfunction; E87.5 Hyperkalemia; F11.90 Opioid use, unspecified, uncomplicated; F15.10 Other stimulant abuse, uncomplicated; F17.210 Nicotine dependence, cigarettes, uncomplicated; Z20.822 Contact with and (suspected) exposure to COVID-19; F41.9 Anxiety disorder, unspecified; F32.A Depression, unspecified; R74.01 Elevation of levels of liver transaminase levels; Z59.00 Homelessness unspecified; Z79.4 Long term (current) use of insulin; Z80.3 Family history of malignant neoplasm of breast; Z82.49 Family history of ischemic heart disease and other diseases of the circulatory system; Z83.3 Family history of diabetes mellitus; Z91.14 Patient's other noncompliance with medication regimen
CPT/HCPCS: 31500; 36415; 36556; 36600; 70450; 71045; 73501; 80053; 80307; 80320; 81001; 82010; 82805; 82962; 83605; 83735; 83930; 84100; 84132; 85007; 85027; 87040; 87070; 87077; 87081; 87186; 87205; 87426; 94002; 94003; 96365; 96372; 96375; 99291; G0378; J0696; J1815; J2250; J2704; J3490

== ENCOUNTER 2023-12-10 18:34 | Inpatient (IN) | payer MEDICAID, OTHER ==
[~2023-12-10] VITALS: Ht 172.7 cm; Wt 35.0 kg
[~2023-12-10 18:34] MED LIST changes: -DIVA125T12 PO; +DIVA125T30 PO
[2023-12-10] MEDS: ROCURONIUM 10MG/ML 10ML VIAL IV ONE (19:00)
[2023-12-10] MEDS: ETOMIDATE (2MG/ML) 20ML VIAL IV ONE ×2 (19:00→19:16)
[2023-12-10] MEDS: MIDAZOLAM HCL 2MG/2ML 2ml VIAL (1mg/ml) IV ONE (19:15)
[2023-12-10] MEDS: SUCCINYLCHOLINE CHLORIDE 20 MG/ML 10ML VIAL IV ONE (19:16)
[2023-12-10 19:17] LABS: Urine Bacteria None Seen /hpf (None Seen); Urine WBC None Seen /hpf (0 - 3)
[2023-12-10] MEDS: SODIUM CHLORIDE 0.9% 3,000 ML IV ONE (19:30)
[2023-12-10 19:32] VITALS: BP 127/79; PULSE 129; RESP 18; O2SAT 92
[2023-12-10 19:32] LABS: Urine Blood Negative /uL (Negative); Urine Clarity Clear (Clear); Urine Color Light-Yellow (Yellow); Urine Protein, UAD Negative (Negative); Urine Specific Gravity 1.032 (1.001-1.035); Urine Urobilinogen Normal (Negative)
[2023-12-10 19:33] VITALS: O2SAT 71
[2023-12-10 19:36] LABS: Amphetamine Screen, Urine Pos (NEGATIVE); Barbiturate Scree,Urine Neg (NEGATIVE); Benzodiazephine Screen, Urine Neg (NEGATIVE); Cannabinoid Screen, Urine Neg (NEGATIVE); Cocaine Screen, Urine Neg (NEGATIVE); Opiate Scree,Urine Neg (NEGATIVE); Phencyclidine Screen, Urine Neg (NEGATIVE)
[2023-12-10] MEDS: PROPOFOL 100 ML IV ONE (19:43)
[2023-12-10] MEDS: PROPOFOL 100 ML IV SCH (19:45)
[2023-12-10 19:54] LABS: Basophils # (auto) 0 10 ^3/uL (0-0.2); Basophils % (auto) 0.1 % (0.0-2.0); Eosinophils # (auto) 0 10 ^3/uL (0-0.8); Hematocrit 44.1 % (41.0-53.0); Hemoglobin 14.1 g/dL (13.5-17.5); Lymphocytes # (auto) 2.9 10 ^3/uL (0.4-5.4); Mean Corpuscular Hemoglobin 28.8 pg (28.0-32.0); Mean Corpuscular Volume 90.2 fL (80.0-100.0); Monocytes # (auto) 1.1 10 ^3/uL (0-1.3); Monocytes % (auto) 5.5 % (0.0-12.0); Neutrophils # (auto) 16.4 10 ^3/uL (1.6-8.6); Neutrophils % (auto) 80.4 % (37.0-80.0); Nucleated Red Blood Cells % 0.1 %; Platelet Count (auto) 352 10^3/uL (140-450); Red Blood Cells 4.89 10^6/uL (4.5-5.90); Red Cell Distribution Width 15.4 % (11.8-14.3); White Blood Cell 20.4 10^3/uL (4.4-10.8)
[2023-12-10 19:57] LABS: Base Excess -17.3 mmol/L (-2.0-3.0)
[2023-12-10 20:09] VITALS: BP 118/64; PULSE 129; RESP 18; O2SAT 100
[2023-12-10 20:15] LABS: Alanine Aminotransferase 159 U/L (7-40); Albumin 3.7 g/dL (3.2-4.8); Alkaline Phosphatase 415 U/L (46-116); Anion Gap 27 (5-15); Aspartate Aminotransferase 65 U/L (13-40); BUN/Creatinine Ratio 21.5 (10.0-20.0); Blood Urea Nitrogen 29 mg/dL (9-23); Carbon Dioxide 10 mmol/L (20-31); Chloride 99 mmol/L (98-107); Potassium 4.5 mmol/L (3.5-5.1); Sodium 136 mmol/L (136-145)
[2023-12-10 20:16] LABS: Bilirubin, Total 0.6 mg/dL (0.2-1.0); Phosphorus 4.7 mg/dL (2.4-5.1); Total Protein 6.3 g/dL (5.7-8.2)
[2023-12-10 20:27] LABS: Glucose 698 mg/dL (74-106); Lactic Acid w/Reflex 2.1 mmol/L (0.4-2.0)
[2023-12-10 20:30] VITALS: PULSE 128; RESP 26; O2SAT 98
[2023-12-10] MEDS ORDERED: CEFEPIME 2GM/50ML NS 50 ML IV ONE (20:30)
[2023-12-10 20:33] VITALS: BP 118/64; PULSE 119; RESP 28; O2SAT 100
[2023-12-10] MEDS: SODIUM CHLORIDE 0.9% 1,000 ML IV SCH (20:45)
[2023-12-10] MEDS ORDERED: DEXTROSE (50%) 50ML SYRG IV PRN (20:45)
[2023-12-10] MEDS: MIDAZOLAM DRIP 50 mg/50mL 50 ML IV SCH (21:19)
[2023-12-10] MEDS: MIDAZOLAM DRIP 50 mg/50mL 50 ML IV ONE (21:19)
[2023-12-10] MEDS: CEFEPIME 2GM/50ML NS 50 ML IV ONE (21:26)
[2023-12-10] MEDS: INSULIN LANTUS (GLARGINE) 1 /0.01ml (100units/ml) SC ONE (21:41)
[2023-12-10] MEDS: INSULIN DRIP 100 UNIT/100ML 100 ML IV SCH (21:44)
[2023-12-10] MEDS: ACCU-CHEK COMFORT CURVE STRIP VI SCH (21:45)
[2023-12-10] MEDS: IOHEXOL 300 MG/ML 100ML BOTTLE IJ ONE (22:43)
[2023-12-10] MEDS: methylPREDNISolone SOD SUCC 125 MG/2 ML VL ONE (22:51)
[2023-12-10 22:55] VITALS: BP 180/92; PULSE 100; RESP 18; O2SAT 100
[2023-12-10 23:10] LABS: Chloride 107 mmol/L (98-107); Potassium 3.7 mmol/L (3.5-5.1); Sodium 141 mmol/L (136-145)
[2023-12-10 23:11] LABS: BUN/Creatinine Ratio 12.5 (10.0-20.0); Blood Urea Nitrogen 17 mg/dL (9-23)
[2023-12-10 23:13] LABS: Anion Gap 24.00001 (5-15); Calcium 8.2 mg/dL (8.7-10.4)
[2023-12-10 23:23] LABS: Carbon Dioxide < 10 mmol/L (20-31); Glucose 615 mg/dL (74-106)
[2023-12-10] MEDS ORDERED: ONDANSETRON HCL 4 MG/2 ML VIAL IV PRN (23:45)
[2023-12-10] MEDS: VANCOMYCIN 1GM/200ML 200 ML IV ONE (23:57)
[2023-12-11] VITALS (14 sets, daily range): BP systolic 114–163; BP diastolic 87–121; PULSE 49–95; RESP 18–31; O2SAT 99–100
[2023-12-11] MEDS ORDERED: MORPHINE SULFATE INJ 2 MG/ml SYRG IV PRN
[2023-12-11] MEDS ORDERED: NITROGLYCERIN 0.4 MG SL TAB SL PRN
[2023-12-11] MEDS ORDERED: VANCOMYCIN PER PHARMACY 0 MG IV SCH (01:15)
[2023-12-11] MEDS: ACCU-CHEK COMFORT CURVE STRIP VI SCH ×2 (01:30→11:07)
[2023-12-11] MEDS: SODIUM CHLORIDE 0.9% 1,000 ML IV SCH ×2 (01:35→03:15)
[2023-12-11 03:00] LABS: Chloride 110 mmol/L (98-107); Potassium 3.7 mmol/L (3.5-5.1); Sodium 144 mmol/L (136-145)
[2023-12-11 03:01] LABS: Anion Gap 18 (5-15); Calcium 8.7 mg/dL (8.7-10.4); Carbon Dioxide 16 mmol/L (20-31)
[2023-12-11 03:06] LABS: BUN/Creatinine Ratio 14.1 (10.0-20.0); Blood Urea Nitrogen 19 mg/dL (9-23)
[2023-12-11 03:07] LABS: Glucose 293 mg/dL (74-106)
[2023-12-11] MEDS: D5W/SOD CHLO 0.9% 1,000 ML IV SCH (05:03)
[2023-12-11 06:14] LABS: Basophils # (auto) 0.1 10 ^3/uL (0-0.2); Basophils % (auto) 0.4 % (0.0-2.0); Eosinophils # (auto) 0 10 ^3/uL (0-0.8); Hematocrit 43.4 % (41.0-53.0); Hemoglobin 14.1 g/dL (13.5-17.5); Lymphocytes # (auto) 7.1 10 ^3/uL (0.4-5.4); Lymphocytes % (auto) 30.3 % (10.0-50.0); Mean Corpuscular Hemoglobin 29.4 pg (28.0-32.0); Mean Corpuscular Hgb Conc. 32.6 g/dL (32.0-36.0); Monocytes # (auto) 2.4 10 ^3/uL (0-1.3); Monocytes % (auto) 10.2 % (0.0-12.0); Neutrophils # (auto) 13.7 10 ^3/uL (1.6-8.6); Neutrophils % (auto) 59.1 % (37.0-80.0); Nucleated Red Blood Cells % 0.2 %; Platelet Count (auto) 358 10^3/uL (140-450); Red Blood Cells 4.82 10^6/uL (4.5-5.90); Red Cell Distribution Width 15.8 % (11.8-14.3); White Blood Cell 23.3 10^3/uL (4.4-10.8)
[2023-12-11] MEDS: POTASSIUM CHL 20MEQ/100ML 100 ML IV ONE (06:17)
[2023-12-11 06:20] LABS: Anion Gap 16 (5-15); Calcium 8.7 mg/dL (8.7-10.4); Carbon Dioxide 18 mmol/L (20-31); Chloride 112 mmol/L (98-107); Potassium 3.9 mmol/L (3.5-5.1); Sodium 146 mmol/L (136-145)
[2023-12-11 06:27] LABS: BUN/Creatinine Ratio 12.2 (10.0-20.0); Blood Urea Nitrogen 15 mg/dL (9-23); Magnesium 1.9 mg/dL (1.6-2.6)
[2023-12-11 06:28] LABS: Glucose 160 mg/dL (74-106)
[2023-12-11 06:29] LABS: Phosphorus 2.6 mg/dL (2.4-5.1)
[2023-12-11] MEDS: PIPERACILLIN-TAZOB 3.375GM 100 ML IV SCH (06:41)
[2023-12-11] MEDS: D5W/SOD CHL 0.45% 1,000 ML IV SCH ×2 (07:04→16:30)
[2023-12-11 08:18] LABS: Base Excess -2.1 mmol/L (-2.0-3.0)
[2023-12-11 08:32] LABS: Chloride 116 mmol/L (98-107); Potassium 4.6 mmol/L (3.5-5.1); Sodium 147 mmol/L (136-145)
[2023-12-11 08:33] LABS: Anion Gap 9 (5-15); Calcium 8.5 mg/dL (8.7-10.4); Carbon Dioxide 22 mmol/L (20-31)
[2023-12-11 08:38] LABS: BUN/Creatinine Ratio 15.9 (10.0-20.0); Blood Urea Nitrogen 17 mg/dL (9-23); Glucose 131 mg/dL (74-106)
[2023-12-11] MEDS: PANTOPRAZOLE 40 MG/10 ML VIAL INJ IV SCH (09:35)
[2023-12-11] MEDS ORDERED: cefTRIAXone 1GM/50ML D5W 50 ML IV SCH (10:00)
[2023-12-11] MEDS ORDERED: PANTOPRAZOLE 40 MG/10 ML VIAL INJ IV SCH (10:00)
[2023-12-11 10:40] LABS: Chloride 116 mmol/L (98-107); Potassium 4.4 mmol/L (3.5-5.1); Sodium 147 mmol/L (136-145)
[2023-12-11 10:41] LABS: Anion Gap 10 (5-15); Carbon Dioxide 21 mmol/L (20-31)
[2023-12-11 10:42] LABS: Calcium 8.4 mg/dL (8.7-10.4)
[2023-12-11 10:46] LABS: Blood Urea Nitrogen 16 mg/dL (9-23); Glucose 147 mg/dL (74-106)
[2023-12-11] MEDS: ENOXAPARIN SOD 40 MG/0.4 ML SYRINGE SC SCH (11:00)
[2023-12-11] MEDS: INSULIN LANTUS (GLARGINE) 1 /0.01ml (100units/ml) SC SCH (11:01)
[2023-12-11] MEDS: InsuLIN REG 1unit/0.01ml Soln (100units/ml) SC SCH ×2 (11:11→22:00)
[2023-12-11] MEDS: VANCOMYCIN 500 MG in D5W 5% 100 ML IV SCH (11:21)
[2023-12-11 14:44] LABS: Chloride 116 mmol/L (98-107); Potassium 3.7 mmol/L (3.5-5.1); Sodium 146 mmol/L (136-145)
[2023-12-11 14:45] LABS: Anion Gap 10 (5-15); Calcium 7.9 mg/dL (8.7-10.4); Carbon Dioxide 20 mmol/L (20-31)
[2023-12-11 14:50] LABS: BUN/Creatinine Ratio 15.2 (10.0-20.0); Blood Urea Nitrogen 15 mg/dL (9-23); Glucose 143 mg/dL (74-106)
[2023-12-11 15:43] LABS: INR 1.11 (0.9-1.15); Prothrombin Time 11.7 sec (9.3-11.8)
[2023-12-11] MEDS: hydrALAZINE HCL 20 MG/ML VL IV PRN (17:56)
[2023-12-12] VITALS (7 sets, daily range): BP systolic 123–144; BP diastolic 88–110; PULSE 45–102; RESP 18–25; O2SAT 99–100
[2023-12-12 05:58] LABS: Basophils # (auto) 0 10 ^3/uL (0-0.2); Basophils % (auto) 0.4 % (0.0-2.0); Eosinophils # (auto) 0 10 ^3/uL (0-0.8); Eosinophils % (auto) 0.1 % (0.0-7.0); Hemoglobin 13.4 g/dL (13.5-17.5); Lymphocytes # (auto) 3.8 10 ^3/uL (0.4-5.4); Lymphocytes % (auto) 28.6 % (10.0-50.0); Mean Corpuscular Hgb Conc. 33.5 g/dL (32.0-36.0); Mean Corpuscular Volume 86.6 fL (80.0-100.0); Monocytes # (auto) 0.8 10 ^3/uL (0-1.3); Monocytes % (auto) 5.9 % (0.0-12.0); Neutrophils # (auto) 8.7 10 ^3/uL (1.6-8.6); Nucleated Red Blood Cells % 0.1 %; Platelet Count (auto) 291 10^3/uL (140-450); Red Blood Cells 4.62 10^6/uL (4.5-5.90); Red Cell Distribution Width 15.6 % (11.8-14.3); White Blood Cell 13.3 10^3/uL (4.4-10.8)
[2023-12-12 06:17] LABS: Alanine Aminotransferase 117 U/L (7-40); Albumin 3.1 g/dL (3.2-4.8); Alkaline Phosphatase 308 U/L (46-116); Anion Gap 9 (5-15); Aspartate Aminotransferase 138 U/L (13-40); BUN/Creatinine Ratio 14.3 (10.0-20.0); Bilirubin, Total 0.6 mg/dL (0.2-1.0); Blood Urea Nitrogen 11 mg/dL (9-23); Calcium 8.5 mg/dL (8.7-10.4); Carbon Dioxide 21 mmol/L (20-31); Chloride 114 mmol/L (98-107); Glucose 114 mg/dL (74-106); Lipase 18 U/L (12-53); Potassium 3.2 mmol/L (3.5-5.1); Sodium 144 mmol/L (136-145); Total Protein 5.4 g/dL (5.7-8.2); Uric Acid 2.8 mg/dL (3.7-9.2)
[2023-12-12] MEDS ORDERED: POTASSIUM CHL 20MEQ/100ML 100 ML IV SCH (07:30)
[2023-12-12] MEDS: POTASSIUM CHL 20MEQ/100ML 100 ML IV SCH (08:00)
[2023-12-12] MEDS: MAGNESIUM SULFATE 1GM/100ML 100 ML IV SCH (08:02)
[2023-12-12 09:03] LABS: Base Excess -2.6 mmol/L (-2.0-3.0)
[2023-12-12 21:53] LABS: Urine Bacteria None Seen /hpf (None Seen)
[2023-12-12] MEDS: KETOROLAC TROMETH 30 MG/ML 1ML VIAL IV ONE (21:54)
[2023-12-12] MEDS: INSULIN LANTUS (GLARGINE) 1 /0.01ml (100units/ml) SC SCH (21:56)
[2023-12-12 22:11] LABS: Protein, Urine 39.1 mg/dL (1-14)
[2023-12-12 22:13] LABS: Creatinine, Urine 53.41 mg/dL (30.0-125.0)
[2023-12-12 22:31] LABS: Urine Blood 3+ /uL (Negative); Urine Clarity Clear (Clear); Urine Color Colorless (Yellow); Urine Protein, UAD TRACE (Negative); Urine Specific Gravity 1.015 (1.001-1.035); Urine Urobilinogen Normal (Negative); Urine WBC 6 /hpf (0 - 3)
[2023-12-13 07:10] LABS: Basophils # (auto) 0 10 ^3/uL (0-0.2); Basophils % (auto) 0.3 % (0.0-2.0); Eosinophils # (auto) 0.1 10 ^3/uL (0-0.8); Eosinophils % (auto) 0.7 % (0.0-7.0); Hematocrit 35.3 % (41.0-53.0); Hemoglobin 11.5 g/dL (13.5-17.5); Lymphocytes # (auto) 2.3 10 ^3/uL (0.4-5.4); Lymphocytes % (auto) 31.9 % (10.0-50.0); Mean Corpuscular Hemoglobin 29.1 pg (28.0-32.0); Mean Corpuscular Hgb Conc. 32.5 g/dL (32.0-36.0); Mean Corpuscular Volume 89.6 fL (80.0-100.0); Monocytes # (auto) 0.4 10 ^3/uL (0-1.3); Monocytes % (auto) 5.6 % (0.0-12.0); Neutrophils # (auto) 4.5 10 ^3/uL (1.6-8.6); Neutrophils % (auto) 61.5 % (37.0-80.0); Nucleated Red Blood Cells % 0.1 %; Platelet Count (auto) 167 10^3/uL (140-450); Red Blood Cells 3.93 10^6/uL (4.5-5.90); Red Cell Distribution Width 15.3 % (11.8-14.3); White Blood Cell 7.3 10^3/uL (4.4-10.8)
[2023-12-13 07:30] VITALS: PULSE 71; RESP 24; TEMP 97.9; O2SAT 99
[2023-12-13] MEDS ORDERED: LEVO500T91 PO (07:35)
[2023-12-13 07:36] LABS: Alanine Aminotransferase 115 U/L (7-40); Albumin 2.7 g/dL (3.2-4.8); Alkaline Phosphatase 268 U/L (46-116); Anion Gap 10 (5-15); Aspartate Aminotransferase 172 U/L (13-40); BUN/Creatinine Ratio 9.7 (10.0-20.0); Bilirubin, Total 0.8 mg/dL (0.2-1.0); Blood Urea Nitrogen 7 mg/dL (9-23); Calcium 7.8 mg/dL (8.7-10.4); Carbon Dioxide 20 mmol/L (20-31); Chloride 111 mmol/L (98-107); Potassium 3.5 mmol/L (3.5-5.1); Sodium 141 mmol/L (136-145)
[2023-12-13 07:39] LABS: Glucose 317 mg/dL (74-106)
[2023-12-13 09:02] LABS: Hepatitis B Surface Antigen Negative (Negative)
[2023-12-13 09:23] LABS: Hepatitis B Core IgM Negative
[2023-12-13 09:24] LABS: Hepatitis C Antibody Negative (Negative)
[2023-12-13 10:00] VITALS: BP 110/71; PULSE 88; RESP 22; O2SAT 99
== END 2023-12-13 11:34 | disposition home or self-care (01) | DRG 720 ==
LOC: ER 18:34 → EDBD 18:34 → TELE 23:58
PROVIDERS: ADMIT Hospitalist; ATTEND Hospitalist
PROC: 06HY33Z Insertion of Infusion Device into Lower Vein, Percutaneous Approach (ICD-10-PCS; 2023-12-10)
PROC: 0D9670Z Drainage of Stomach with Drainage Device, Via Natural or Artificial Opening (ICD-10-PCS; 2023-12-10)
PROC: 0BH17EZ Insertion of Endotracheal Airway into Trachea, Via Natural or Artificial Opening (ICD-10-PCS; principal; 2023-12-11)
PROC: 5A1945Z Respiratory Ventilation, 24-96 Consecutive Hours (ICD-10-PCS; 2023-12-11)
DX: A41.9 Sepsis, unspecified organism (principal); J96.01 Acute respiratory failure with hypoxia; E10.11 Type 1 diabetes mellitus with ketoacidosis with coma; G93.41 Metabolic encephalopathy; N17.9 Acute kidney failure, unspecified; L03.313 Cellulitis of chest wall; E87.3 Alkalosis; E86.0 Dehydration; I10 Essential (primary) hypertension; F17.210 Nicotine dependence, cigarettes, uncomplicated; R74.01 Elevation of levels of liver transaminase levels; E87.8 Other disorders of electrolyte and fluid balance, not elsewhere classified; F15.10 Other stimulant abuse, uncomplicated; Z59.00 Homelessness unspecified; Z79.4 Long term (current) use of insulin; Z83.3 Family history of diabetes mellitus; Z82.49 Family history of ischemic heart disease and other diseases of the circulatory system; Z91.199 Patient's noncompliance with other medical treatment and regimen due to unspecified reason; Z80.3 Family history of malignant neoplasm of breast; Z79.899 Other long term (current) drug therapy
CPT/HCPCS: 36415; 36600; 70450; 71045; 71260; 72125; 74177; 76705; 80048; 80053; 80074; 80202; 80307; 81001; 82010; 82306; 82550; 82570; 82805; 82962; 83036; 83605; 83690; 83735; 83930; 84100; 84156; 84300; 84443; 84484; 84550; 85025; 85610; 86703; 87040; 87070; 87077; 87186; 87205; 93005; 94002; 94003; 94640; 96365; 96372; 96375; 99291; G0378; J0692; J1815; J1885; J2250; J2470; J2543; J2704; J3480; J7060